=== PATIENT | female | born 1980 | race Caucasian/White ===

== ENCOUNTER 2016-08-21 15:47 | Emergency (ER) | payer OTHER, MEDICAID ==
[~2016-08-21] VITALS: Ht 180.3 cm; Wt 100.0 kg
[~2016-08-21 15:47] MED LIST: BACT800T5 PO; BENZ100 PO; FOLI1TAB4 PO; NAPR500T PO; SUBO8MIS SL
[2016-08-21 15:48] VITALS: BP 162/98; PULSE 85; RESP 15; TEMP 97.8; O2SAT 96
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
[2016-08-21] MEDS ORDERED: ONDA4TAB7 SL (18:47)
== END 2016-08-21 19:11 | disposition home or self-care (01) ==
LOC: NEPB 15:47
DX: O26.891 Other specified pregnancy related conditions, first trimester (principal); M54.5 Low back pain; V43.52XA Car driver injured in collision with other type car in traffic accident, initial encounter; Y92.410 Unspecified street and highway as the place of occurrence of the external cause; Z3A.01 Less than 8 weeks gestation of pregnancy; F17.210 Nicotine dependence, cigarettes, uncomplicated
CPT/HCPCS: 84703; 99283

== ENCOUNTER 2018-01-30 00:58 | Observation (INO) ==
[2018-01-30] MEDS ORDERED: Diphtheria/Tetanus/Pertussis Vaccine Inj 0.5 ML Syringe IM ONE (01:04)
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
[2018-01-30 01:26] LABS: Baso % (Auto) 0.6 % (0.0-2.0); Eos # (Auto) 0.2 th/mm3 (0.0-0.4); Eos % (Auto) 2.5 % (0.0-4.0); Hematocrit 42.3 % (35.0-46.0); Hemoglobin 14.2 gm/dL (11.6-15.3); Lymph # (Auto) 2.4 th/mm3 (1.0-4.8); Lymph % (Auto) 35.2 % (9.0-44.0); Mean Corpuscular HGB Conc 33.4 % (32.0-36.0); Mean Corpuscular Hemoglobin 30.1 pg (27.0-34.0); Mean Corpuscular Volume 90.1 fL (80.0-100.0); Mean Platelet Volume 8.1 fL (7.0-11.0); Mono # (Auto) 0.6 th/mm3 (0.0-0.9); Mono % (Auto) 8.5 % (0.0-8.0); Neut # (Auto) 3.7 th/mm3 (1.8-7.7); Neut % (Auto) 53.2 % (16.0-70.0); Platelet Count 204 th/mm3 (150-450); Red Cell Distribution Width 15.8 % (11.6-17.2); White Blood Count 6.9 th/mm3 (4.0-11.0)
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
[2018-01-30] MEDS ORDERED: ceFAZolin 2 GM Premix Inj 2 GM/50 ML PIGGYBACK IV.SIG ONE (01:29)
[2018-01-30] MEDS ORDERED: Sod Chloride 0.9% Inj 1,000 ML IV.CONT SCH ×2 (01:30→05:00)
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
[2018-01-30 01:36] LABS: Activated Partial Thrombo Time 27.1 sec (24.3-30.1); INR 1.1 Ratio; Prothrombin Time 11.3 sec (9.8-11.6)
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
[2018-01-30 01:41] LABS: Anion Gap 9 meq/L (5-15); Blood Urea Nitrogen 8 mg/dL (7-18); Calcium 8.9 mg/dL (8.5-10.1); Chloride 107 meq/L (98-107); Glomerular Filtration Rate 72 mL/min (>89); Glucose,Random 96 mg/dL (74-106); Potassium 3.8 meq/L (3.5-5.1); Sodium 145 meq/L (136-145)
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
[2018-01-30] MEDS ORDERED: Morphine Inj 4 MG/ML Vial IV.PUSH PRN (05:00)
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
[2018-01-30] MEDS ORDERED: Docusate Sodium 100 MG Capsule PO SCH (09:00)
[2018-01-30 09:32] LABS: Bilirubin,Urine Negative (Negative); Clarity,Urine Hazy (Clear); Color,Urine Yellow (Yellw/Straw); Glucose,Urine (UA) Negative (Negative); Leukocyte Esterase,Urine Trace (Negative); Mucus,Urine Few /lpf (Occasional); Nitrite,Urine Negative (Negative); Squamous Epithelial Cell,Urine 18 /hpf (0-5)
[2018-01-30 10:58] LABS: Amphetamine Screen,Urine Pos (Neg); Barbiturate Screen,Urine Neg (Neg); Cannabinoid Screen,Urine Neg (Neg); Cocaine Screen,Urine Neg (Neg)
[2018-01-30 11:06] LABS: Opiate Screen,Urine Neg (Neg)
[2018-01-30 11:38] VITALS: BP 138/88; PULSE 83; RESP 16; TEMP 98.4; O2SAT 91
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
[2018-01-31] MEDS ORDERED: Chlorhexidine Gluconate 2% 1 Pack (2 Cloths) TOPICAL SCH (04:00)
[2018-01-31] MEDS ORDERED: Chlorhexidine Gluconate 2% 1 Pack (2 Cloths) TOPICAL PRN (04:00)
== END 2018-01-30 13:19 | disposition home or self-care (01) ==
LOC: NEDA 00:58 → NEPI 00:58 → MERGE 02:15 → EDBD 02:15 → NEPGCP 05:51
PROVIDERS: ADMIT Surgery; ATTEND Surgery